=== PATIENT | male | born 1985 | race Caucasian/White ===

== ENCOUNTER 2020-11-11 15:59 | Emergency (ER) | payer OTHER ==
[~2020-11-11] VITALS: Ht 165.1 cm; Wt 65.9 kg
[2020-11-11 16:07] VITALS: BP 150/87; Ht 165.1 cm; Wt 65.9 kg
[2020-11-11] MEDS ORDERED: WELLBUTRIN (16:08)
[2020-11-11] MEDS ORDERED: STRATTERA100 MG PO (16:08)
== END 2020-11-11 20:11 | disposition home or self-care (01) ==
LOC: D.ER 15:59
DX: S00.33XA Contusion of nose, initial encounter (principal); S05.11XA Contusion of eyeball and orbital tissues, right eye, initial encounter; Y04.2XXA Assault by strike against or bumped into by another person, initial encounter; Y93.9 Activity, unspecified; Y92.9 Unspecified place or not applicable